=== PATIENT | male | born 1955 | race Caucasian/White ===

== ENCOUNTER 2018-12-14 11:14 | Outpatient (CLI) ==
--- NOTE | 2018-12-14 11:46 | DI ---
EXAM: Three views of the right ankle. History: Right ankle pain. Comparison: Right ankle radiograph 02/01/2012 Findings: No acute fracture or dislocation. Joint spaces are relatively preserved. Moderate diffus e subcutaneous edema. Impression: 1. No acute osseous abnormality. 2. Moderate diffuse subcutaneous edema
--- NOTE | 2018-12-14 11:48 | DI ---
EXAM: Three views of the right foot. History: Right foot pain. Findings: No acute fracture or dislocation. Diffuse subcutaneous edema. Mild to moderate narrowing of the first MTP joint with marginal sclerosis and small osteophytes. Joint spaces are otherwise re latively preserved. Impression: 1. No acute osseous abnormality. 2. 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 3. Diffuse subcutaneous edema
== END 2018-12-14 11:15 | disposition home or self-care (01) ==
LOC: RAD 11:14
PROVIDERS: ATTEND Family Medicine
DX: M79.671 Pain in right foot (principal)